=== PATIENT | female | born 1970 | race Asian ===

== ENCOUNTER 2023-09-21 13:45 | Emergency (ER) | payer MEDICAID ==
[~2023-09-21] VITALS: Ht 152.4 cm; Wt 50.0 kg
[2023-09-21 14:04] VITALS: O2SAT 100
[2023-09-21] MEDS ORDERED: AMOX1TAB16 MT (17:18)
[2023-09-21 19:32] VITALS: BP 130/68; PULSE 60; RESP 18; TEMP 98
== END 2023-09-21 20:15 | disposition home or self-care (01) ==
LOC: ER 13:45
DX: K04.7 Periapical abscess without sinus (principal)
CPT/HCPCS: 99283